=== PATIENT | male | born 1960 | race Hispanic/Latino ===

== ENCOUNTER 2018-03-30 18:27 | Emergency (ER) | payer OTHER ==
[~2018-03-30 18:27] MED LIST: CARV6.25 PO; HYOS-14 PO; ISOS60TA4 PO; METF-444 PO; OMEP40CA37 PO
[2018-03-30] MEDS ORDERED: GUAIFENESIN SUGAR-FREE 100 MG/5 ML UDCUP ONE (21:00)
[2018-03-30] MEDS ORDERED: BENZONATATE 100 MG CAPSULE PO ONE (21:01)
[2018-03-30] MEDS ORDERED: IBUPROFEN 600 MG TABLET ONE (21:01)
[2018-03-30] MEDS ORDERED: DEXAMETHASONE SOD PHOSPHATE 10MG/ML 1ML VIAL ONE (21:01)
== END 2018-03-30 22:10 | disposition home or self-care (01) ==
LOC: EDH 18:27
DX: J06.9 Acute upper respiratory infection, unspecified (principal); J04.0 Acute laryngitis; E11.9 Type 2 diabetes mellitus without complications; I25.10 Atherosclerotic heart disease of native coronary artery without angina pectoris
CPT/HCPCS: 87880; 96372; 99284; J1100

== ENCOUNTER 2018-05-11 14:20 | Observation (INO) | payer OTHER ==
[~2018-05-11] VITALS: Ht 175.3 cm; Wt 67.9 kg
[2018-05-11] MEDS ORDERED: ASPIRIN 325 MG TABLET ONE (15:20)
[2018-05-11 15:21] LABS: BASOPHILS % (AUTO) 0.6 % (0.0-5.0); EOSINOPHILS % (AUTO) 1.7 % (0.0-8.0); HEMATOCRIT 41.5 % (42-54); LYMPHOCYTES % (AUTO) 15.4 % (21.0-51.0); MEAN CORPUSCULAR HEMOGLOBIN 30.6 pg (27.0-33.0); MEAN CORPUSCULAR HGB CONC 33.7 g/dL (32.0-36.0); MEAN CORPUSCULAR VOLUME 90.6 fL (79-99); MONOCYTES % (AUTO) 6.5 % (3.0-13.0); NEUTROPHILS % (AUTO) 75.8 % (40.0-77.0); PLATELET COUNT (AUTO) 219 K/uL (130-400); RED BLOOD CELL COUNT(AUTO) 4.59 MIL/uL (4.50-6.20); RED CELL DISTRIBUTION WIDTH 12.8 % (11.0-15.5); WHITE BLOOD COUNT (AUTO) 9.8 K/uL (4.8-10.8)
[2018-05-11 15:45] LABS: INR 0.99 (0.85-1.15); PARTIAL THROMBOPLASTIN TIME 25.3 SEC (26.3-35.5); PROTHROMBIN TIME 10.4 SEC (9.6-11.6)
[2018-05-11 16:11] LABS: CREATININE 0.7 mg/dL (0.5-1.5)
[2018-05-11 16:26] LABS: CREATINE KINASE, TOTAL 108 U/L (21-232)
[2018-05-11 16:32] LABS: ALBUMIN 3.4 g/dL (3.5-5.0); BILIRUBIN,TOTAL 0.8 mg/dL (0.2-1.0); MYOGLOBIN 37 ng/mL (10-92); TOTAL PROTEIN, SERUM 7.2 g/dL (6.0-8.3); TROPONIN I < 0.04 ng/mL (0.00-0.06)
[2018-05-11] MEDS: ENOXAPARIN SODIUM 40 MG/0.4 ML SYRINGE SQ SCH (19:00)
[2018-05-11] MEDS ORDERED: MORPHINE SULFATE 4 MG/1ML SYG IV PRN (19:30)
[2018-05-11] MEDS ORDERED: ONDANSETRON HCL 4 MG/2 ML VIAL IV PRN (19:30)
[2018-05-11] MEDS ORDERED: ACETAMINOPHEN 325 MG TAB PO PRN (19:30)
[2018-05-11 19:45] VITALS: BP 136/83
--- NOTE | 2018-05-11 20:00 | NUR ---
PT ARRIVED TO UNIT. NO DISTRESS NOTED. FAMILY AT BEDSIDE. CHEST PAIN STATED TO MIDDLE STERNAL AREA. STATED NOTIFIED JAMES APPRENTICE FUNERAL DIRECTOR. WILL APPLY SCHEDULED NITRO PATCH. LAST BM 2/. ACTIVE BOWEL SOUNDS. DISTENDED ABDOMEN. PT STATES INCREASE GAS. NO CONSTIPATION. PERRLA. AAOX3. MEDICATIONS LEFT AT HOME BUT HAS IMAGES OF MEDICATIONS. SCDS IN PLACE.
[2018-05-11] MEDS: DIPHENHYDRAMINE HCL 25 MG CAPSULE PO SCH (20:15)
[2018-05-11] MEDS: NITROGLYCERIN 1GM/1 INCH PACKET TD SCH (20:15)
[2018-05-11] MEDS: CARVEDILOL 6.25 MG TABLET PO SCH (20:16)
[2018-05-11] MEDS ORDERED: FAMOTIDINE/PF 20 MG/2 ML VIAL IV SCH (21:00)
[2018-05-11] MEDS: HYOSCYAMINE SULFATE 0.125 MG TAB.SUBL SL SCH (21:00)
[2018-05-11 22:42] LABS: CREATINE KINASE, TOTAL 89 U/L (21-232); MYOGLOBIN 37 ng/mL (10-92); TROPONIN I < 0.04 ng/mL (0.00-0.06)
[2018-05-11 23:48] VITALS: BP 123/82
[2018-05-12] MEDS ORDERED: OMEP40CA37 PO (00:59)
[2018-05-12] MEDS ORDERED: CARV6.25 PO (00:59)
[2018-05-12] MEDS ORDERED: ASPI-555 PO (00:59)
[2018-05-12] MEDS ORDERED: NAPR375T6 PO (00:59)
[2018-05-12] MEDS ORDERED: METF-445 PO (00:59)
[2018-05-12] MEDS ORDERED: ATOR10 PO (00:59)
[2018-05-12] MEDS ORDERED: LOSA25TA41 PO (00:59)
[2018-05-12 03:41] LABS: BASOPHILS % (AUTO) 0.4 % (0.0-5.0); EOSINOPHILS % (AUTO) 2.7 % (0.0-8.0); HEMATOCRIT 41.2 % (42-54); LYMPHOCYTES % (AUTO) 21.2 % (21.0-51.0); MEAN CORPUSCULAR HEMOGLOBIN 30.8 pg (27.0-33.0); MEAN CORPUSCULAR HGB CONC 33.8 g/dL (32.0-36.0); MEAN CORPUSCULAR VOLUME 90.8 fL (79-99); MONOCYTES % (AUTO) 7.4 % (3.0-13.0); NEUTROPHILS % (AUTO) 68.3 % (40.0-77.0); NUCLEATED RED BLOOD CELLS 0.1 % (0.0-0.19); PLATELET COUNT (AUTO) 189 K/uL (130-400); RED BLOOD CELL COUNT(AUTO) 4.54 MIL/uL (4.50-6.20); WHITE BLOOD COUNT (AUTO) 7.8 K/uL (4.8-10.8)
[2018-05-12] MEDS: NITROGLYCERIN 1GM/1 INCH PACKET TD SCH (03:56)
[2018-05-12 04:02] VITALS: BP 113/78
[2018-05-12 04:08] LABS: ALANINE AMINOTRANSFERASE 33 U/L (12-78); ALBUMIN 3.2 g/dL (3.5-5.0); ASPARTATE AMINOTRANSFERASE 26 U/L (10-37); CARBON DIOXIDE 30 mmol/L (21-32); CHLORIDE 102 mmol/L (101-111); CREATINE KINASE, TOTAL 74 U/L (21-232); CREATININE 0.7 mg/dL (0.5-1.5); GLOMERULAR FILTR. RATE CALC 124 mL/min (>60); GLUCOSE,RANDOM 241 mg/dL (70-105); MYOGLOBIN 29 ng/mL (10-92); POTASSIUM 3.7 mmol/L (3.5-5.1); SODIUM SERUM 138 mmol/L (136-145); TOTAL PROTEIN, SERUM 6.8 g/dL (6.0-8.3); TROPONIN I < 0.04 ng/mL (0.00-0.06); UREA NITROGEN, BLOOD 14 mg/dL (7-18)
[2018-05-12] MEDS: INSULIN HUMULIN R 100 UNIT/ML 3ML SQ SCH ×4 (07:30→20:22)
[2018-05-12 07:44] VITALS: BP 127/81
--- NOTE | 2018-05-12 08:00 | NUR ---
AM ASSESSMENT PT LAYING IN BED, HOB ELEVATED 30 DEGREES, RESTING. FAMILY @ BEDSIDE. A/O X 3. NO SOB. NO DISTRESS NOTED. DENIES CHEST PAIN OR DISCOMFORT. DENIES PALPITATIONS. TELE: SR 80s. DENIES N/V AND/OR DIARRHEA. PENDING CARDIOLOGY CONSUL TODAY. PT SEE DR DONNIE SHORT. UP AD SYBIL. INSTRUCTED TO CALL FOR ASSISTANCE. CALL CHARLI W/IN REACH.
[2018-05-12 08:35] LABS: HEMOGLOBIN A1C 10.6 % (4.0-6.0)
[2018-05-12] MEDS ORDERED: ASPIRIN 325 MG TABLET PO SCH ×2 (09:00)
[2018-05-12] MEDS: HYOSCYAMINE SULFATE 0.125 MG TAB.SUBL SL SCH ×3 (09:00→20:27)
[2018-05-12] MEDS ORDERED: ISOSORBIDE MONO 60 MG TAB.SR PO SCH (09:00)
[2018-05-12] MEDS: DIPHENHYDRAMINE HCL 25 MG CAPSULE PO SCH ×3 (09:14→20:22)
[2018-05-12] MEDS: CARVEDILOL 6.25 MG TABLET PO SCH ×2 (09:15→20:23)
[2018-05-12] MEDS: PANTOPRAZOLE SODIUM 40 MG TABLET.DR PO SCH (09:16)
[2018-05-12] MEDS: ENOXAPARIN SODIUM 40 MG/0.4 ML SYRINGE SQ SCH (09:17)
[2018-05-12 12:03] VITALS: BP 115/73
[2018-05-12] MEDS ORDERED: NITROGLYCERIN 0.4 MG SL TAB SL PRN (13:00)
[2018-05-12] MEDS ORDERED: PHARMACY COMMUNICATION MISC SCH (13:00)
[2018-05-12] MEDS ORDERED: COMPOUND PO MISCELLANEOUS 1 EACH MISC MISC PRN ×2 (13:15)
[2018-05-12] MEDS ORDERED: NITROGLYCERIN 1GM/1 INCH PACKET TD SCH (14:00)
[2018-05-12] MEDS ORDERED: LIDOCAINE HCL 2% VISCOUS 30 ML, MAG HYDROX/AL HYDROX/SIMETH 30 ML, DICYCLOMINE HCL 20 MG PO ONE ×3 (14:15)
--- NOTE | 2018-05-12 14:15 | NUR ---
CARDIOLOGY CONSULT DR Danielle HERNANDEZ & Kana LEÓN FISH AND WILDLIFE TECHNICIAN IN TO SEE PT. DANIELITO @ BEDSIDE. PT'S STATUS & PLAN OF CARE REVIEWED. PT TO HAVE TASHI SCAN IN AM. NPO AFTER MIDNIGHT EXPLAINED TO PT. STATES UNDERSTANDING. PT INFORMED BY MD TO HAVE NO CAFFEINE FOR THE NEXT 24 HRS.
[2018-05-12] MEDS ORDERED: LORAZEPAM 1 MG TABLET PO SCH (14:56)
[2018-05-12 16:17] VITALS: BP 123/74
[2018-05-12 19:47] VITALS: BP 126/81
[2018-05-12] MEDS ORDERED: ATORVASTATIN CALCIUM 20 MG TABLET PO SCH (21:00)
[2018-05-12 23:36] VITALS: BP 111/77
[2018-05-13 04:00] VITALS: BP 115/75
[2018-05-13 04:25] LABS: HEMATOCRIT 39.7 % (42-54); MEAN CORPUSCULAR HEMOGLOBIN 30.6 pg (27.0-33.0); MEAN CORPUSCULAR HGB CONC 33.7 g/dL (32.0-36.0); MEAN CORPUSCULAR VOLUME 90.8 fL (79-99); PLATELET COUNT (AUTO) 215 K/uL (130-400); RED BLOOD CELL COUNT(AUTO) 4.38 MIL/uL (4.50-6.20); WHITE BLOOD COUNT (AUTO) 7.5 K/uL (4.8-10.8)
[2018-05-13 04:33] LABS: CREATININE 0.8 mg/dL (0.5-1.5); POTASSIUM 3.8 mmol/L (3.5-5.1)
[2018-05-13] MEDS: INSULIN HUMULIN R 100 UNIT/ML 3ML SQ SCH ×3 (06:02→16:30)
--- NOTE | 2018-05-13 07:45 | NUR ---
AM ASSESSMENT PT LAYING IN BED, HOB ELEVATED 30 DEGREES, WATCHING TV. FAMILY @ BEDSIDE. A/O X 3. NO SOB. NO DISTRESS NOTED. DENIES CHEST PAIN OR DISCOMFORT. DENIES PALPITATIONS. TELE: SR 80s. DENIES N/V AND/OR DIARRHEA. NPO STATUS REINFORCED. PT TO HAVE TASHI SCAN TODAY. INSTRUCTED TO CALL FOR ASSISTANCE. CALL CHARLI W/IN REACH.
[2018-05-13 08:22] VITALS: BP 123/88
[2018-05-13] MEDS ORDERED: ASPIRIN 81MG TAB.CHEW PO SCH (09:00)
[2018-05-13] MEDS: HYOSCYAMINE SULFATE 0.125 MG TAB.SUBL SL SCH (09:00)
[2018-05-13] MEDS ORDERED: ASPIRIN 325 MG TABLET PO SCH (09:00)
[2018-05-13] MEDS: ENOXAPARIN SODIUM 40 MG/0.4 ML SYRINGE SQ SCH (09:01)
[2018-05-13] MEDS: CARVEDILOL 6.25 MG TABLET PO SCH (09:02)
[2018-05-13] MEDS: DIPHENHYDRAMINE HCL 25 MG CAPSULE PO SCH ×2 (09:02→14:55)
[2018-05-13] MEDS: PANTOPRAZOLE SODIUM 40 MG TABLET.DR PO SCH (09:02)
[2018-05-13] MEDS: REGADENOSON 0.4 MG/5 ML PF SYG IVP SCH ×2 (09:28→11:02)
--- NOTE | 2018-05-13 11:30 | NUR ---
TASHI SCAN @ 0910 PT TAKEN TO HAVE TASHI SCAN DONE VIA WC. TELE SERG REMOVED. @ 1130 PT RETURNED FROM TASHI SCAN. NO DISTRESS NOTED. DENIES CHEST PAIN. DIET RESUMED. FAMILY @ BEDSIDE.
[2018-05-13 12:01] VITALS: BP 134/88
--- NOTE | 2018-05-13 15:02 | NUR ---
DC PLAN VISITED WITH PATIENT. PATIENT LIVES WITH DTR. INDEPENDENT ABLE TO PERFORM ADL'S. NO SERVICES OR DME'S. FEELS SAFE TO RETURN HOME. Addendum: 05/13/18 at 1503 by RAMIREZ LEROY RN CM Amended: Links added.
[2018-05-13 16:31] VITALS: BP 127/82
[2018-05-13] MEDS ORDERED: METFORMIN HCL 850 MG TABLET PO SCH (17:00)
[2018-05-13] MEDS ORDERED: GLIPIZIDE 5 MG TABLET PO SCH (17:00)
--- NOTE | 2018-05-13 18:16 | NUR ---
[facility], NORMAL RESULTS. NO ISCHEMIA.
--- NOTE | 2018-05-13 18:17 | NUR ---
MD NOTIFICATION DR RUSSO NOTIFIED OF TASHI SCAN RESULTS. PT TO BE DISCHARGE HOME TODAY.
--- NOTE | 2018-05-13 18:20 | NUR ---
DISCHARGE PT UPDATED ON PLAN OF CARE. NORMAL TASHI SCAN RESULTS. PLAN TO DISCHARGE THIS EVENING. TELE SERG REMOVED @ THIS TIME.
[2018-05-13] MEDS ORDERED: METF850T PO (18:24)
[2018-05-13] MEDS ORDERED: ATOR20TA65 PO (18:24)
[2018-05-13] MEDS ORDERED: GLIP5TAB11 PO (18:24)
--- NOTE | 2018-05-13 19:10 | NUR ---
DISCHARGE VERBAL & WRITTEN DISCHARGE INSTRUCTIONS REVIEWED & GIVEN TO PT. PROPER CARE & MGT OF CHEST PAIN REVIEWED. NEW PRESCRIBED MEDICATIONS REVIEWED. PRESCRIPTION GIVEN TO PT, SIGNED COPY PLACED IN CHART. IV DISCONTINUED. PT TO GATHER PERSONAL BELONGINGS. WILL NOTIFY STAFF WHEN READY TO BE TAKEN TO PRIVATE VEHICLE.
--- NOTE | 2018-05-13 19:20 | NUR ---
DISCHARGE PT TAKEN TO PRIVATE VEHICLE VIA WC BY [facility] APYTON PCP, ACCOMPANIED BY FAMILY. NO DISTRESS NOTED.
== END 2018-05-13 19:18 | disposition home or self-care (01) ==
LOC: EDH 14:20 → INTOOBSV 17:55 → OBSVTOIN 17:55 → EDHIP 17:55 → 2AH 19:43
PROVIDERS: ADMIT Family Medicine; ATTEND Family Medicine
DX: I25.110 Atherosclerotic heart disease of native coronary artery with unstable angina pectoris (principal); E11.65 Type 2 diabetes mellitus with hyperglycemia; E66.01 Morbid (severe) obesity due to excess calories; E78.2 Mixed hyperlipidemia; I10 Essential (primary) hypertension; I47.1 Supraventricular tachycardia; J04.0 Acute laryngitis; K21.9 Gastro-esophageal reflux disease without esophagitis; N52.9 Male erectile dysfunction, unspecified; Z80.9 Family history of malignant neoplasm, unspecified; Z82.0 Family history of epilepsy and other diseases of the nervous system; Z82.3 Family history of stroke; Z82.49 Family history of ischemic heart disease and other diseases of the circulatory system; Z82.5 Family history of asthma and other chronic lower respiratory diseases; Z83.3 Family history of diabetes mellitus; Z79.84 Long term (current) use of oral hypoglycemic drugs
CPT/HCPCS: 36415 ×3; 71045; 71250; 78452; 80048; 80053 ×2; 80061; 82550 ×3; 82948 ×7; 83036; 83874 ×3; 84484 ×3; 85025 ×2; 85027; 85610; 85730; 93005; 93017; 93306; 96372 ×3; 96374; 99284; A4600; A9500 ×2; G0378 ×49; J1650 ×3; J1815 ×3; J2785; J3490; Q0163 ×6

== ENCOUNTER 2018-10-26 14:40 | Emergency (ER) | payer OTHER ==
[~2018-10-26 14:40] MED LIST changes: +ASPI-555 PO; +ATOR20TA65 PO; +GLIP5TAB11 PO; -HYOS-14 PO; -ISOS60TA4 PO; +LOSA25TA41 PO; -METF-444 PO; +METF-445 PO; +METF850T PO; +NAPR375T6 PO
== END 2018-10-26 15:05 | disposition home or self-care (01) ==
LOC: EDH 14:40
DX: M65.311 Trigger thumb, right thumb (principal); E11.9 Type 2 diabetes mellitus without complications; E78.5 Hyperlipidemia, unspecified; I10 Essential (primary) hypertension; I25.10 Atherosclerotic heart disease of native coronary artery without angina pectoris
CPT/HCPCS: 29125

== ENCOUNTER 2022-11-19 13:05 | Emergency (ER) | payer OTHER ==
[~2022-11-19] VITALS: Ht 175.3 cm; Wt 117.9 kg
[~2022-11-19 13:05] MED LIST changes: +AEC81 PO; +AMLO-258 PO; -ASPI-555 PO; +ASPI-556 PO; +ATOR10TA69 PO; +CARV12.511 PO; +HYDR-3421 PO; +IBUP-2070 PO; +LEVO-70 PO; +LOSA50TA64 PO; +MELO5CAP3 PO; +METF-444 PO; +METR-172 PO; +OMEP-420 PO; +OMEP40CA21 PO; -OMEP40CA37 PO; +REPA2TAB8 PO; +TIRZ2.5P SQ
[2022-11-19 13:47] LABS: BASOPHILS # (AUTO) 0.04 K/uL (0.00-0.20); BASOPHILS % (AUTO) 0.5 % (0.0-5.0); EOSINOPHILS # (AUTO) 0.15 K/uL (0.00-0.70); EOSINOPHILS % (AUTO) 1.8 % (0.0-8.0); HEMATOCRIT 39.9 % (42-54); IMMATURE GRANULOCYTE ABSOLUTE 0.02 K/uL (0-1); LYMPHOCYTES # (AUTO) 1.1 K/uL (1.0-4.8); LYMPHOCYTES % (AUTO) 13.7 % (21.0-51.0); MEAN CORPUSCULAR HEMOGLOBIN 30.2 pg (27.0-33.0); MEAN CORPUSCULAR HGB CONC 34.3 g/dL (32.0-36.0); MEAN CORPUSCULAR VOLUME 88.1 fL (79-99); MONOCYTES # (AUTO) 0.5 K/uL (0.1-1.0); MONOCYTES % (AUTO) 5.4 % (3.0-13.0); NEUTROPHILS # (AUTO) 6.5 K/uL (1.8-7.7); NEUTROPHILS % (AUTO) 78.4 % (40.0-77.0); PLATELET COUNT (AUTO) 205 K/uL (130-400); RED BLOOD CELL COUNT(AUTO) 4.53 MIL/uL (4.50-6.20); RED CELL DISTRIBUTION WIDTH 12.3 % (11.0-15.5); WHITE BLOOD COUNT (AUTO) 8.3 K/uL (4.8-10.8)
[2022-11-19 14:04] LABS: CREATININE 0.8 mg/dL (0.5-1.5); POTASSIUM 4.2 mmol/L (3.5-5.1)
[2022-11-19 14:08] LABS: ALBUMIN 3.5 g/dL (3.5-5.0); BILIRUBIN,TOTAL 1.3 mg/dL (0.2-1.0); TOTAL PROTEIN, SERUM 7.1 g/dL (6.0-8.3)
[2022-11-19 14:32] LABS: B-TYPE NATRIURETIC PEPTIDE 5 pg/mL (0-100)
[2022-11-19] MEDS ORDERED: MECL-160 PO (16:17)
[2022-11-19 16:21] VITALS: BP 160/88; PULSE 79; RESP 16; O2SAT 98
[2022-11-19] MEDS ORDERED: MECLIZINE HCL 25 MG TABLET PO ONE (16:30)
== END 2022-11-19 16:29 | disposition home or self-care (01) ==
LOC: EDH 13:05
DX: R42 Dizziness and giddiness (principal); R07.89 Other chest pain; E11.9 Type 2 diabetes mellitus without complications; E78.00 Pure hypercholesterolemia, unspecified; I10 Essential (primary) hypertension; Z79.1 Long term (current) use of non-steroidal anti-inflammatories (NSAID); Z79.82 Long term (current) use of aspirin; Z79.84 Long term (current) use of oral hypoglycemic drugs; Z79.899 Other long term (current) drug therapy
CPT/HCPCS: 36415; 71045; 80053; 83880; 84484; 85025; 93005

== ENCOUNTER → 2024-06-16 | Outpatient (CLI) | payer OTHER ==
[~2024-06-16] MED LIST changes: -GLIP5TAB11 PO; +GLIP5TAB15 PO; +MECL-302 PO; +NAPR-1505 PO; -NAPR375T6 PO
--- NOTE | 2024-06-17 06:55 | HMCSR ---
APPROVED REPORT Bilateral Lower Extremity Venous Study for DVT., Venous Competence. Indications i73.9 Vein Imaging CFV (R): Normal flow, augmentation and compression. No evidence of DVT. 10.4mm 467ms of reflux. SFJ (R): Normal flow, augmentation and compression. No evidence of DVT. FEM (R): Normal flow, augmentation and compression. No evidence of DVT. POP (R): Normal flow, augmentation and compression. No evidence of DVT. DFV (R): Normal flow, augmentation and compression. No evidence of DVT. PTV (R): Normal flow, augmentation and compression. No evidence of DVT. Peroneals (R): Normal flow, augmentation and compression. No evidence of DVT. CFV (L): Normal flow, augmentation and compression. No evidence of DVT. 10.5mm 656ms of reflux. SFJ (L): Normal flow, augmentation and compression. No evidence of DVT. FEM (L): Normal flow, augmentation and compression. No evidence of DVT. POP (L): Normal flow, augmentation and compression. No evidence of DVT. DFV (L): Normal flow, augmentation and compression. No evidence of DVT. PTV (L): Normal flow, augmentation and compression. No evidence of DVT. Peroneals (L): Normal flow, augmentation and compression. No evidence of DVT. Technologist Impression Deep veins of bilateral lower extremities appear patent and compressible without thrombus. Deep vein reflux seen in the RT. SFV Distal & LT. POP V Superficial venous unsufficiency seen in the LGSV RGSV junction 4.1mm 0.0ms thigh 3.9mm 0.0ms knee 4.0mm 294ms calf 2.4mm 0.0ms RSSV Prox 2.8mm 450ms Mid 2.8mm 322ms LGSV junction 4.0mm 144ms thigh 3.5mm 0.0ms knee 2.8mm 0.0ms calf 2.2mm 2633 LSSV Prox 3.6mm 0.0ms Mid 2.7mm 0.0ms Conclusion Deep vein reflux seen in the RT. SFV Distal & LT. POP V Superficial venous unsufficiency seen in the LGSV Consider formal venography with IVC clinically indicated Conclusion Deep vein reflux seen in the RT. SFV Distal & LT. POP V Superficial venous unsufficiency seen in the LGSV Consider formal venography with IVC clinically indicated
--- NOTE | 2024-06-17 06:56 | HMCSR ---
APPROVED REPORT Laterality: Bilateral Indications I73.9 VELOCITY AND DOPPLER WAVEFORM ANALYSIS ENGINE REPAIR SUPERVISOR (R) 53.3cm/sec, Triphasic, ENGINE REPAIR SUPERVISOR (L) 88.8cm/sec, Triphasic, Prof Fem Art. (R) 85.2cm/sec, Biphasic, Prof Fem Art. (L) 87.0cm/sec, Biphasic, Fem Art Prox. (R) 104.1cm/sec, Triphasic, Fem Art Prox. (L) 107.7cm/sec, Triphasic, Fem Art Mid. (R) 95.1cm/sec, Triphasic, Fem Art Mid. (L) 106.5cm/sec, Triphasic, Fem Art Dist (R) 74.5cm/sec, Triphasic, Fem Art Dist. (L) 89.1cm/sec, Triphasic, Pop Art(AK) (R) 67.3cm/sec, Triphasic, Pop Art (AK) (L) 71.8cm/sec, Triphasic, Pop Art (Fossa)(R) 66.4cm/sec, Triphasic, Pop Art (Fossa) (L) 57.9cm/sec, Triphasic, Pop Art(BK) (R) 73.6cm/sec, Triphasic, Pop Art (BK) (L) 64.4cm/sec, Triphasic, TRIPPER Dist. (R) 88.8cm/sec, Triphasic, TRIPPER Dist. (L) 85.6cm/sec, Triphasic, Per Art Dist. (R) 39.3cm/sec, Triphasic, Per Art Dist. (L) 47.7cm/sec, Triphasic, AYO Dist. (R) 95.1cm/sec, Triphasic, AYO Dist. (L) 87.0cm/sec, Triphasic, Technologist Impression No evidence of significant arterial insufficiency of bilateral lower extremities. Multiphasic waveforms seen in bilateral lower extremities. RT. Pop Crum's cyst 4.3x 1.0x 2.4cm Conclusion No evidence of significant arterial insufficiency of bilateral lower extremities. Crum cyst present in right popliteal region Clinical correlation recommended Conclusion No evidence of significant arterial insufficiency of bilateral lower extremities. Crum cyst present in right popliteal region Clinical correlation recommended
== END | disposition home or self-care (01) ==
LOC: SHCH 12:44
PROVIDERS: ATTEND Internal Medicine Cardiovascular Disease
DX: I87.2 Venous insufficiency (chronic) (peripheral) (principal); I87.1 Compression of vein; I73.9 Peripheral vascular disease, unspecified; M71.21 Synovial cyst of popliteal space [Baker], right knee; M71.22 Synovial cyst of popliteal space [Baker], left knee
CPT/HCPCS: 93925; 93970

== ENCOUNTER → 2024-06-19 | Outpatient (CLI) | payer OTHER | END | disposition home or self-care (01) | LOC: SHCH 13:04 | PROVIDERS: ATTEND Internal Medicine Cardiovascular Disease | DX: I08.0 Rheumatic disorders of both mitral and aortic valves (principal); R07.9 Chest pain, unspecified; R94.31 Abnormal electrocardiogram [ECG] [EKG]; R06.09 Other forms of dyspnea | CPT/HCPCS: 93306 ==